=== PATIENT | female | born 1945 | race Caucasian/White ===

== ENCOUNTER 2021-02-25 14:39 | Outpatient (CLI) | payer MEDICARE, SELFPAY ==
[2021-02-25 15:57] LABS: Basophils Absolute Auto 0.1 K/mm3 (0.0-0.1); Basophils Percent Auto 0.7 % (0.2-1.2); Eosinophils Absolute Auto 0.2 K/mm3 (0-0.3); Eosinophils Percent Auto 2.9 % (0-4.4); Hematocrit 43.3 % (37.0-47.0); Hemoglobin 14.3 g/dL (12.0-15.0); Immature Granulocyte Absolute 0.02 K/mm3 (0.00-0.031); Immature Granulocyte Percent A 0.3 % (0-0.5); Lymphocytes Absolute Auto 1.86 K/mm3 (0.9-3.2); Lymphocytes Percent Auto 24.6 % (18.3-44.2); Mean Corpuscular Hemoglobin 31.6 pg (26-34); Mean Corpuscular Volume 95.6 fl (80-100); Mean Platelet Volume 9.2 fl (7.4-10.4); Monocytes Absolute Auto 0.8 K/mm3 (0.1-0.6); Monocytes Percent Auto 10.1 % (2.6-8.5); Neutrophils Absolute Auto 4.6 K/mm3 (1.3-6.7); Neutrophils Percent Auto 61.4 % (45.5-73.1); Platelet Count Result 241 k/mm3 (150-375); Red Blood Count 4.53 M/mm3 (4.2-5.4); Red Cell Distribution Width 13.5 % (11.5-14.5); White Blood Count 7.6 K/mm3 (4.5-10.0)
[2021-02-25 16:00] LABS: Add Urine Microscopic? YES; Appearance Urine Clear (Clear); Bilirubin Urine Negative (Negative); Blood Urine Negative (Negative); Color Urine Yellow (Yellow); Glucose Urine UA Negative (Negative); Ketones Urine Negative (Negative); Leukocyte Esterase Ur Trace LEU/UL (Negative); Nitrate Urine Negative (Negative); Protein Urine Negative (Negative); RBC Urine 0-2 /hpf (0-2); Specific Grav Ur 1.023 (1.001-1.035); Squamous Epithelial Cell Urine Rare /hpf (Few); Urobilinogen Urine Negative mg/dL (<2.0); WBC Urine 0-3 /hpf
[2021-02-25 16:10] LABS: Alanine Aminotransferase 22 U/L (4-35); Alkaline Phosphatase 71 U/L (38-126); Anion Gap 8 mmol/L (8-16); Aspartate Amino Transferase 27 U/L (14-36); Bilirubin,Total 0.5 mg/dL (0.2-1.3); Blood Urea Nitrogen 29 mg/dL (7-17); Calcium 9.4 mg/dL (8.4-10.2); Carbon Dioxide 28 mmol/L (22-30); Chloride 104 mmol/L (98-107); Cholesterol 225 mg/dL (0-200); Estimated Glomerular Filt Rate > 60; Glucose 99 mg/dL (65-110); HDL Direct 80 mg/dL; Potassium 4.4 mmol/L (3.4-5.0); Sodium 140 mmol/L (137-145); Triglycerides 181 mg/dL (<150)
[2021-02-25 16:20] LABS: LDL Cholesterol Direct 114 mg/dL
[2021-02-25 17:29] LABS: Hemoglobin A1C 5.3 % (<5.7)
[2021-02-25 19:11] LABS: Free T4 Free Thyroxine 0.73 ng/mL (0.78-2.19); Vitamin D 25 Hydroxy 36.3 ng/mL
[2021-02-26 07:55] LABS: Alanine Aminotransferase 21 U/L (4-35); Albumin Level 4.9 g/dL (3.5-5.1); Alkaline Phosphatase 74 U/L (38-126); Anion Gap 9 mmol/L (8-16); Aspartate Amino Transferase 24 U/L (14-36); Bilirubin,Total 0.2 mg/dL (0.2-1.3); Blood Urea Nitrogen 29 mg/dL (7-17); Carbon Dioxide 27 mmol/L (22-30); Chloride 104 mmol/L (98-107); Cholesterol 219 mg/dL (0-200); Estimated Glomerular Filt Rate > 60; Glucose 96 mg/dL (65-110); HDL Direct 74 mg/dL; Potassium 4.5 mmol/L (3.4-5.0); Sodium 140 mmol/L (137-145); Triglycerides 184 mg/dL (<150)
[2021-02-26 08:06] LABS: LDL Cholesterol Direct 125 mg/dL
[2021-02-26 08:10] LABS: Free T4 Free Thyroxine 0.74 ng/mL (0.78-2.19); Vitamin D 25 Hydroxy 33.5 ng/mL
[2021-02-26 12:33] LABS: Hemoglobin A1C 5.4 % (<5.7)
== END 2021-02-25 14:40 | disposition home or self-care (01) ==
LOC: ANHLAB 14:48
PROVIDERS: PCP Internal Medicine; Visit Provider Internal Medicine
DX: Z13.1 Encounter for screening for diabetes mellitus (principal); Z13.29 Encounter for screening for other suspected endocrine disorder; Z79.899 Other long term (current) drug therapy; Z76.89 Persons encountering health services in other specified circumstances; E55.9 Vitamin D deficiency, unspecified; Z13.220 Encounter for screening for lipoid disorders
CPT/HCPCS: 36415; 80053; 80061; 81001; 82306; 83036; 84439; 84443; 85025

== ENCOUNTER 2021-05-14 01:00 | Day surgery (SDC) | payer MEDICARE, SELFPAY ==
[2021-04-30 13:45] VITALS: BMI 28.0
[2021-05-14] VITALS (10 sets, daily range): BP systolic 164–194; BP diastolic 85–109; PULSE 70–99; RESP 18–22; TEMP 36.3; O2SAT 97–100; BMI 28.0
--- NOTE | ~2021-05-14 | XR_ITS ---
EXAMINATION: XR abdomen obstructive series EXAM DATE: 05/14/2021 09:00 INDICATION: Abdominal after colonoscopy. TECHNIQUE: Frontal upright projection of the upper abdomen, frontal projection of the lower abdomen f or interpretation. There is no prior study for comparison. FINDINGS: There is expected amount of colonic stool and gas. No small bowel dilation, nonobstructiv e bowel gas pattern. There are no suspicious calcifications identified. There is no organomegaly suspected. The bones are unremarkable. There is no free intraperitoneal air. The lung bases are clear. IMPRESSION: No evidence of free intraperitoneal gas. Reviewed, dictated and finalized at location A. [employer]
[2021-05-14] MEDS: LACTATED RINGERS 1,000 ML 150 ML IV CONT (06:59)
--- NOTE | 2021-05-14 07:04 | P.PNAN_ITS ---
Anes - Eval Pre Procedure Procedure: Operation Date: 05/14/21 08:00 Proposed Procedures p Colonoscopy - Tim Irving MD Date/Time: 05/14/21 07:04 Pre Op Diagnosis: positive cologuard Patient Data Age: 75 Gender: F Height: 1.63 m Weight: 74.2 kg Last Vital Signs Temp 97.4 F L 05/14/21 06:48 Pulse 99 05/14/21 06:48 Resp 18 05/14/21 06:48 BP 182/98 H 05/14/21 06:48 Pulse Ox 97 05/14/21 06:48 Allergies Allergy/AdvReac Type Severity Reaction Status Date / Time No Known Allergies Allergy Verified 04/30/21 13:43 Home Medications Medication Instructions Recorded Confirmed Type glucosamine HCl 500 mg tablet 500 mg PO DAILY 02/26/21 04/30/21 History multivitamin 1 tablet PO DAILY 02/26/21 04/30/21 History vitamin A-vitamin C-vit E-min 1 tablet PO DAILY 04/30/21 04/30/21 History [Eye-Vites] Patient hx anesthesia problems: none Family hx anesthesia problems: none Results Review: All pre-operative results and documents have been reviewed as part of the pre-operative evaluation. 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 Positive colorectal cancer screening using Cologuard test Family History Family History Mother Patient's mother is , Onset Age: 87 Leukemia Father Heart disease Social History Social History Smoking packs per day: 0.5 Smoking cigarettes per day: 10.0 Years smoked: 2 Smoking pack-years: 1.00 Smoking status: Former smoker Tobacco type: cigarettes Alcohol intake: current Drinks per week: 3 Substance use: never Substance use type: does not use Living arrangements: with family Spiritual care concerns: No Exam Day of Procedure 05/14/21 07:04 Patient weight: overweight Heart: regular rate and rhythm Lungs: clear to auscultation Airway: Mallampati scale class II Neurological: alert and oriented Other findings: denies health issues
--- NOTE | 2021-05-14 07:21 | WPDANESEFPP ---
Anes - Eval Final PreProcedure Day of Procedure 05/14/21 07:21 Patient weight: overweight Heart: regular rate and rhythm Lungs: clear to auscultation Airway: Mallampati scale class II Neurological: alert and oriented Last oral intake: >/= 8 hours ASA classification: II Emergent: no Anesthetic plan: proceed Anesthesia type and monitoring: general GIVS and standard monitoring Results Review: All pre-operative results and documents have been reviewed as part of the pre-operative evaluation. Informed Consent: The patient's anesthetic plan and its attendant risks and benefits were discussed with the patient/family/POA. Questions were solicited and answers provided to the satisfaction of the patient/family/POA.
--- NOTE | 2021-05-14 07:27 | P.CONGI_ITS ---
Assessment and Plan Assessment and plan (1) Positive colorectal cancer screening using Cologuard test: Code(s): R19.5 - Other fecal abnormalities Status: Acute Assessment and Plan: Patient presents for colonoscopy because of positive Cologuard test. Further recommendations will be given after endoscopy. GI Consult Note Consult date/time: 05/14/21 07:27 HPI: Thelma Anders is a 75 year old female Presents for screening colonoscopy. Patient's current weight appetite bowel movements are normal. She denies abdominal pain. She has had no bleeding. Patient recently underwent a Cologuard test that was found to be positive. She presents today for neoplasia screening. Review of Systems Review of Systems: All systems reviewed & are unremarkable except as noted in HPI and below PMFSH Past Medical History Medical History BMI 27.0-27.9,adult Colon cancer screening Cyst of neck Encounter to establish care On penit[facility]iary drug therapy Positive colorectal cancer screening using Cologuard test Family History Family History Mother Patient's mother is , Onset Age: 87 Leukemia Father Heart disease Social History Social History Smoking packs per day: 0.5 Smoking cigarettes per day: 10.0 Years smoked: 2 Smoking pack-years: 1.00 Smoking status: Former smoker Tobacco type: cigarettes Alcohol intake: current Drinks per week: 3 Substance use: never Substance use type: does not use Living arrangements: with family Spiritual care concerns: No Meds Home Medications and Allergies Home Medications Medication Instructions Recorded Confirmed Type glucosamine HCl 500 mg tablet 500 mg PO DAILY 02/26/21 04/30/21 History multivitamin 1 tablet PO DAILY 02/26/21 04/30/21 History vitamin A-vitamin C-vit E-min 1 tablet PO DAILY 04/30/21 04/30/21 History [Eye-Vites] Allergies Allergy/AdvReac Type Severity Reaction Status Date / Time No Known Allergies Allergy Verified 04/30/21 13:43 Vital Signs Vital Signs - 24 hr 05/14/21 06:48 Temperature 97.4 F L Pulse Rate 99 Respiratory Rate 18 Blood Pressure 182/98 H Pulse Oximetry 97 Exam Narrative: Physical exam reveals patient to be alert. Vital signs stable. HEENT exam is unremarkable. Patient is anicteric. Lungs are clear to auscultation and percussion. Heart is without murmur or extra sounds. Abdominal exam bowel sounds present soft nontender with no organomegaly. Digital external rectal exam is normal.
[2021-05-14] MEDS: hydrALAZINE HCL 20 MG/ML VIAL 10 MG IV PUSH (09:41)
--- NOTE | 2021-05-14 10:22 | SUR.PHASEII ---
PT RECEIVED TO RECOVERY 0826. PT DROWSY, APPEARS UNCOMFORTABLE, HOLDING ABDOMEN, GRIMACING. PT STATES PAIN IS SHARP TO RIGHT LOWER ABDOMEN RADIATING TO BACK. PT MOVING BACK AND FORTH TO GET COMFORTABLE. DR CERNA SEEING PT, ORDERED OBSTRUCTIVE SERIES. PT'S SPOUSE LAN UPDATED. RADIOLOGY HERE FOR XRAY AT 0854. HEATED BLANKET TO ABDOMEN FOR COMFORT. BLOOD PRESSURE RUNNING 180s/100s, HEART RATE 70s, ANESTHESIA AWARE. DR CERNA SPOKE WITH PT AGAIN AT 0858. 0915 PT STATES PAIN IS MORE TOLERABLE, EXPLAINS IT DULL. PT RESTING QUIETLY. DR JACKSON NOTIFIED AT 0931 OF BLOOD PRESSURE 194/109, HR 74. NEW ORDERS FOR HYDRALAZINE 10MG IVP X1 DOSE NOW. HYDRALAZINE GIVEN AT 0941 PER ORDERS. PT EDUCATED ON BLOOD PRESSURE AND HYDRALAZINE, PT STATES NO QUESTIONS. PT AWAKE AND ALERT, APPEARS COMFORTABLE, RESTING QUIETLY. 0950 PT'S SPOUSE LAN UPDATED. BLOOD PRESSURE 180/92, HR [address] CERNA MADE AWARE OF XRAY RESULTS. DR CERNA SPOKE WITH PT AGAIN AND STATES OK TO DISCHARGE PT. 1011 BLOOD PRESSURE 167/85, HR 82. DR JACKSON NOTIFIED OF UPDATED VITAL SIGNS, ORDERS TO PROCEED WITH DISCHARGE. PT EDUCATED IF SHE HAS WORSENING OR CONTINUED PAIN OR FEVERS TO RETURN TO EMERGENCY ROOM, STATES UNDERSTANDING.
== END 2021-05-14 10:26 | disposition home or self-care (01) ==
PROVIDERS: PCP Internal Medicine; Visit Provider Internal Medicine Gastroenterology
PROC: 0DJD8ZZ Inspection of Lower Intestinal Tract, Via Natural or Artificial Opening Endoscopic (ICD-10-PCS; CPT 45378; principal; 2021-05-14 08:00)
DX: R19.5 Other fecal abnormalities (principal); K38.8 Other specified diseases of appendix; N80.5 Endometriosis of intestine; K63.5 Polyp of colon; K64.8 Other hemorrhoids; K57.30 Diverticulosis of large intestine without perforation or abscess without bleeding; Z87.891 Personal history of nicotine dependence
CPT/HCPCS: 45385; 74019; 88305; 88342; J0360; J2704; J7120

== ENCOUNTER 2022-08-25 11:33 | Outpatient (CLI) | payer MEDICARE, SELFPAY ==
--- NOTE | ~2022-08-25 | CT_ITS ---
CT Facial Bones Clinical Indication: Trauma, injury Technique: Following intravenous administration of 75 cc of Omnipaque 350 contrast material, axial sc ans were obtained through the facial bones followed by coronal and sagittal reconstructions. Dose red uction technique was used on this scan by utilizing automated exposure control and iterative reconstr uction technique. The dose-length product (DLP) was 374.00 mGy-cm. Findings: There are fractures of the left nasal bone, anterior wall the left maxillary sinus, and román or of the left orbit. Left orbital floor fracture is depressed by up to 5 mm. No other fracture ident ified. There are blood products layering within the left maxillary sinus. There is extensive subcutaneous so ft tissue emphysema throughout the left periorbital region extending through the left cheek, left man dibular region, and into the left parapharyngeal region and throughout the left neck. There is also e xtensive intraorbital emphysema on the left side. No intraorbital hemorrhage evident. Impression: Depressed fracture of the floor the left orbit, as detailed above. Additional fractures of left nasal bone and anterior wall the left maxillary sinus. Extensive soft tissue emphysema within the left orbit, in the left periorbital region, extending thro ughout the left face and left neck. Reviewed, dictated and finalized at location M. Impression: Depressed fracture of the floor the left orbit, as detailed above. Additional fractures of left nasal bone and anterior wall the left maxillary si nus. Extensive soft tissue emphysema within the left orbit, in the left periorbital region, extending throughout the left face and left neck.
--- NOTE | ~2022-08-25 | XR_ITS ---
XR forearm LT 2V 08/25/2022 12:46 Indication: Left arm pain Procedure: 2 views left forearm Comparison: No prior studies for comparison. Findings: Osteopenia. There is polyarticular osteoarthritis. No acute fracture, subluxation or disloc ation. No foreign bodies. Impression: 1: No acute fracture. Reviewed, dictated and finalized at location B. Impression: 1: No acute fracture.
--- NOTE | ~2022-08-25 | XR_ITS ---
XR hand LT min 3V 08/25/2022 12:46 Indication: Left hand pain Procedure: 4 views left hand Comparison: No prior studies for comparison. Findings: There is a minimally displaced fracture proximal aspect of the fifth proximal phalanx. Poly articular osteoarthritis. Osteopenia. No foreign bodies. Impression: 1: Minimally displaced fracture proximal aspect of the fifth proximal phalanx. Reviewed, dictated and finalized at location B. Impression: 1: Minimally displaced fracture proximal aspect of the fifth proximal phalanx.
[2022-08-25 12:52] LABS: Estimated Glomerular Filt Rate > 60
== END 2022-08-25 11:34 | disposition home or self-care (01) ==
PROVIDERS: PCP Internal Medicine; Visit Provider Internal Medicine
DX: S02.32XA Fracture of orbital floor, left side, initial encounter for closed fracture (principal); S02.2XXA Fracture of nasal bones, initial encounter for closed fracture; S02.40DA Maxillary fracture, left side, initial encounter for closed fracture; S62.617A Displaced fracture of proximal phalanx of left little finger, initial encounter for closed fracture; J43.9 Emphysema, unspecified; W19.XXXA Unspecified fall, initial encounter
CPT/HCPCS: 70487; 73090; 73130; Q9967

== ENCOUNTER 2022-08-25 14:31 | Emergency (ER) | payer MEDICARE, SELFPAY ==
[2022-08-25 14:58] VITALS: BP 164/76; PULSE 104; RESP 18; TEMP 36.6; O2SAT 96
--- NOTE | 2022-08-25 17:14 | ED.FALL ---
HPI - Fall General Chief Complaint: Fall Stated Complaint: Fall yesterday Time Seen by Provider: 08/25/22 15:19 Source: patient Mode of arrival: ambulatory Limitations: no limitations History of Present Illness HPI Narrative: 77-year-old otherwise healthy was sent from primary doctor's office with complaints of fall. Patient she states that she had tripped and front of her yard yesterday no loss of consciousness she denies any headache or neck pain now complains of mild swelling of the left orbit. And she also complains of pain to her left hand. complaint: fall Onset (ago): day(s) (1) Fall from: standing Fall witnessed: yes, by family Place fall occurred: home Loss of consciousness: none Prolonged down time: no Symptoms prior to fall: none Context: tripped/slipped Location of injury: face (Left orbit) Location of injury - extremities: Left: hand Severity: moderate Quality: dull Associated symptoms (after fall): denies Related Data Home Medications Medication Instructions Recorded Confirmed glucosamine HCl 500 mg tablet 500 mg PO DAILY 02/26/21 04/30/21 multivitamin 1 tablet PO DAILY 02/26/21 04/30/21 vitamin A-vitamin C-vit E-min 1 tablet PO DAILY 04/30/21 04/30/21 tablet Allergies Allergy/AdvReac Type Severity Reaction Status Date / Time No Known Allergies Allergy Verified 08/25/22 14:32 Review of Systems Review of Systems: All systems reviewed & are unremarkable except as noted in HPI and below Constitutional: Constitutional: Reports no additional constitutional complaints Eyes: Eyes: Reports as per HPI ENT: Reports system reviewed and no additional complaints, except as documented Cardiovascular: Cardiovascular: Reports no additional cardiovascular complaints Respiratory: Respiratory: Reports no additional respiratory complaints Gastrointestinal: Gastrointestinal: Reports no additional gastrointestinal complaints Musculoskeletal: Musculoskeletal: Reports no additional musculoskeletal complaints and Reports as per HPI PMF Past Medical History Medical History BMI 27.0-27.9,adult Colon cancer screening Cyst of neck Discoloration of skin of foot Ecchymosis of eyelid Encounter to establish care Facial injury Fall Mallet finger of left hand On [employer] drug therapy Positive colorectal cancer screening using Cologuard test Wrist pain, left Family History Family History Mother Patient's mother is , Onset Age: 87 Leukemia Father Heart disease Social History Social History Smoking packs per day: 0.5 Smoking cigarettes per day: 10.0 Years smoked: 2 Smoking pack-years: 1.00 Smoking status: Former smoker Tobacco type: cigarettes Alcohol intake: current Drinks per week: 3 Substance use: never Substance use type: does not use Lack of Transportation: No Lack of Food: Never True Current Housing: I Have Housing Concerned About Future Housing: No Difficulty Paying Gas/Electric Bills: No Difficulty Paying for Meds: No Currently Unemployed: No Education: Associate Degree Difficulty w/ Childcare or Family Care: No Living arrangements: with family Occupation/Education: retired Gender identity (if verbalized by the patient): Female Spiritual care concerns: No Exam Narrative: GENERAL: Well-appearing, well-nourished, and in no acute distress. HEAD: Normocephalic, atraumatic. EYES: PERRLA and EOMI. large left orbital hematoma conjunctiva mildly erythematous no hyphema ENT: Nares clear, no rhinorrhea or epistaxis. Mucous membranes moist. NECK: Supple. CHEST: Clear to auscultation. No respiratory distress. HEART: Regular rate and rhythm. No murmur heard. Normal peripheral pulses. ABDOMEN: Soft, nontender, nondistended, normal active bowel sounds. EXTRE
[2022-08-25 17:18] LABS: Basophils Absolute Auto 0.1 K/mm3 (0.0-0.1); Basophils Percent Auto 1.1 % (0.2-1.2); Eosinophils Absolute Auto 0.2 K/mm3 (0-0.3); Hematocrit 42.4 % (37.0-47.0); Immature Granulocyte Absolute 0.03 K/mm3 (0.00-0.031); Immature Granulocyte Percent A 0.4 % (0-0.5); Lymphocytes Absolute Auto 1.65 K/mm3 (0.9-3.2); Lymphocytes Percent Auto 23.4 % (18.3-44.2); Mean Corpuscular Hemoglobin 31.1 pg (26-34); Mean Corpuscular Volume 94.2 fl (80-100); Mean Platelet Volume 9.3 fl (7.4-10.4); Monocytes Absolute Auto 0.7 K/mm3 (0.1-0.6); Monocytes Percent Auto 9.8 % (2.6-8.5); Neutrophils Absolute Auto 4.4 K/mm3 (1.3-6.7); Neutrophils Percent Auto 62.3 % (45.5-73.1); Platelet Count Result 253 k/mm3 (150-375); Red Cell Distribution Width 14.4 % (11.5-14.5)
[2022-08-25 17:28] LABS: Alanine Aminotransferase 24 U/L (6-35); Albumin Level 4.7 g/dL (3.5-5.1); Alkaline Phosphatase 79 U/L (38-126); Anion Gap 8 mmol/L (8-16); Aspartate Amino Transferase 28 U/L (14-36); Bilirubin,Total 0.7 mg/dL (0.2-1.3); Blood Urea Nitrogen 23 mg/dL (7-17); Calcium 9.3 mg/dL (8.4-10.2); Carbon Dioxide 26 mmol/L (22-30); Chloride 104 mmol/L (98-107); Estimated Glomerular Filt Rate > 60; Glucose 106 mg/dL (65-110); Potassium 4.4 mmol/L (3.4-5.0); Sodium 138 mmol/L (137-145)
[2022-08-25 17:33] LABS: INR 0.9; Prothrombin Time 12.1 Seconds (11.1-14.7)
--- NOTE | 2022-08-25 17:33 | PC.NURSE ---
report called to dora cook at [facility]. pt to go via private vehicle
== END 2022-08-25 17:15 | disposition short-term general hospital (02) ==
PROVIDERS: Emergency Provider Family Medicine; PCP Internal Medicine
DX: S02.32XA Fracture of orbital floor, left side, initial encounter for closed fracture (principal); S02.2XXA Fracture of nasal bones, initial encounter for closed fracture; S02.40DA Maxillary fracture, left side, initial encounter for closed fracture; W01.0XXA Fall on same level from slipping, tripping and stumbling without subsequent striking against object, initial encounter
CPT/HCPCS: 36415; 70487; 73090; 73130; 80053; 85025; 85610; 99283; Q9967

== ENCOUNTER → 2022-09-16 08:08 | Outpatient (CLI) | payer MEDICARE, SELFPAY ==
--- NOTE | ~2022-09-16 | MR_ITS ---
EXAMINATION: MR TMJS DATE: 09/16/2022 09:09 INDICATION: Abnormal CT of the mandible post recent trauma. TECHNIQUE: Magnetic resonance imaging (MRI) of the temporomandibular joints was performed without int ravenous contrast. Sequences included closed-mouth sagittal T2-weighted FSE and PD-weighted FSE and c oronal T1-weighted FSE and open-mouth sagittal T2-weighted FSE and PD-weighted FSE and coronal T1-abisai ghted FSE. COMPARISON: None. FINDINGS: Nonodontogenic 2.3 x 0.8 x 0.3 cm low signal intensity lesion with lobular margins within the right m andibular ramus positioned along the posterior margin but not appearing to involve the canal of the i nferior alveolar nerve. The low signal intensity corresponds to sclerosis with smooth margins on prio r CT. There is surrounding lucency on CT correspond to T1 hyperintense fat signal with mild endosteal scalloping but without guillermina cortical penetration or expansion of the bone on CT. 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 Again seen is a fracture along the inferior wall of the left orbit. Mild mucosal thickening t he paranasal sinuses with T1 hyperintense likely mucous retention cyst along the medial wall of the r ight maxillary sinus. The right temporomandibular joint demonstrates normal morphology of the temporomandibular fossa, kenan ibular eminence and mandibular condyle. Disc demonstrates normal signal and morphology and is normall y positioned with the mouth in the both open and closed positions. The left temporomandibular joint demonstrates normal morphology of the temporomandibular fossa, anthony bular eminence and mandibular condyle. Disc demonstrates normal signal and morphology with anterior d isplacement of the disk with mouth closed. There is recapture of the disk with mouth open. IMPRESSION: 1. 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 2. Anterior displacement of the normal-appearing left temporomandibular disc which recaptures in the open-mouth position. Right temporomandibular joint and disc are normal. 3. Redemonstration of a recent fracture of the inferior wall of the left orbit. Reviewed, dictated and finalized at location L. IMPRESSION: 1. 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 2. Anterior displacement of the normal-appearing left temporomandibular disc wh ich recaptures in the open-mouth position. Right temporomandibular joint and di sc are normal. 3. Redemonstration of a recent fracture of the inferior wall of the left orbit.
== END ==
PROVIDERS: PCP Internal Medicine; Visit Provider Internal Medicine
DX: S09.93XA Unspecified injury of face, initial encounter (principal); M89.9 Disorder of bone, unspecified; T14.90XA Injury, unspecified, initial encounter
CPT/HCPCS: 70336

== ENCOUNTER 2022-10-07 12:30 | Outpatient (RCR) | payer MEDICARE, SELFPAY ==
--- NOTE | 2022-09-15 14:58 | OTOPEVAL1 ---
Assessment and note entered by Meaghan Ku OTR/Solo Evaluation Information Assessment Status Evaluation Diagnosis L digit 5 proximal phalanx fracture Onset 08/24/2022 Subjective Information Patient presents to outpatient OT following a proximal phalanx fracture of L UE digit 5 on 2022. Patient is 3 weeks out from injury and is cleared for ROM of digit 5, patient presents today with a hand based ulnar gutter splint keeping MCP joint of digit 4-5 in neutral position and PIP/ DIP joints free. Patient reports broke finger in a fall. Patient reports swelling and stiffness in digit 5, has guarded finger and has not attempted to use L hand as much. 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 Reported Pain Level Pain Score 0: Self Report Assessment OT Clinical Summary Thelma is a 77 year old female who presents to outpatient OT 3 weeks following a closed L UE proximal phalanx fracture of digit 5. Patient presents with a hand based ulnar gutter splint keeping MCP joint of digit 4-5 in neutral position and PIP/DIP joints free. Patient reports has kept splint on and has not attempted to move finger very much. Patient demonstrates decreased digit 5 MCP, PIP, DIP flexion in addition to extension lag of ~-60 degrees of PIP extension. Patient would benefit from skilled OT for HEP instruction, UE exercise, modalities, manual therapy in order to increase functional use L UE. Plan of Care Interventions Therapeutic Exercise,Manual Therapy,Therapeutic Activities,Hot Pack/Cold Pack,Paraffin OT Services Indicated Yes Treatment Frequency and 1x/week, 5 weeks Duration These treatments will address the objective and functional deficits as defined above. The patient will be advanced safely and appropriately in order for the patient to progress towards his/her prior level of function. Additional exercises will be introduced and as well as a comprehensive home exercise program upon discharge, if needed, ?to ensure carryover of functional gains achieved in the clinic. This treatment plan has been reviewed and agreement upon by the patient.
--- NOTE | 2022-10-14 15:06 | OTOPDC ---
Assessment and note entered by NATALIA Dent/Solo Evaluation Information Assessment Status Discharge - Pt Not Presen Assessment OT Clinical Summary Thelma is a 77 year old female who presents to outpatient OT 3 weeks following a closed L UE proximal phalanx fracture of digit 5. Patient has participated in x3 treatments with OT. Spoke with patient over the phone who reports she is very pleased with therapy and does not feel she needs to continue at this time. Patient reports is able to move little finger great and is able to use L hand for all daily and functional tasks. Patient is to be discharged at this time from skilled OT with independence with all HEP materials. Plan of Care OT Services Indicated No
== END 2022-10-14 15:58 | disposition home or self-care (01) ==
LOC: ANHGOSHOT 12:30
PROVIDERS: PCP Internal Medicine
DX: S62.617D Displaced fracture of proximal phalanx of left little finger, subsequent encounter for fracture with routine healing (principal)
CPT/HCPCS: 97018; 97035; 97110; 97140; 97165; 97760; L3921

== ENCOUNTER 2023-04-30 07:52 | Outpatient (CLI) | payer MEDICARE, SELFPAY | END 2023-04-30 07:53 | disposition home or self-care (01) | PROVIDERS: PCP Internal Medicine; Visit Provider Internal Medicine | DX: H90.3 Sensorineural hearing loss, bilateral (principal) | CPT/HCPCS: 92557; 92567 ==

== ENCOUNTER 2024-12-29 08:40 | Day surgery (SDC) | payer MEDICARE, SELFPAY ==
[2024-12-20 11:04] VITALS: BMI 28.5
--- NOTE | 2024-12-29 07:01 | P.OP_ITS ---
Procedure Note - Detailed Date of Procedure 12/29/24 Pre-op Diagnosis Ganglion Cyst Right Volar Wrist Post-op Diagnosis Same Procedure Performed excision right volar ganglion cyst Surgeon Savanah Simon MD Dredge Or Barge [place] Hand cass quick pa-c Anesthesia MAC Description of Procedure INFORMED CONSENT: The patient was seen and examined and marked in the pre-op area.? The patient signed the consent form. PROCEDURE IN DETAIL:The patient taken back to OR on the stretcher in supine position. Time out performed with anesthesia, surgeon and staff agreeing on patient's name site and surgery to be performed SCDs were placed on the lower extremities and inflated. A tourniquet was placed on {right} upper extremity and antibiotics given IV After anesthesia administered sedation I injected {7}cc 1%lido with epi and 0.5% marcaine plain at the operative site The?{right upper extremity}?was prepped and draped in sterile fashion the??{right upper extremity/} was? exsanguinated with Esmarch bandage proximal to mass and tourniquet inflated to 250mmHg I proceeded with making a longitudinal incision over the right volar wrist mass through skin and dermis with a 15 blade scalpel. Littler scissors and 15 blade were used to elevate skin flaps exposing the mass. I identified the mass proximally and proceeded with circumferential dissection of the mass which appeared to have a stalk coming from the ulnar side of the flexor carpi radialis down to the joint capsule. The cyst was transected from the joint capsule with bipolar cautery. I irrigated with normal saline. I repaired the capsular defect with 4-0 Vicryl suture. 4-0 Monocryl was used for subcuticular closure. A dressing of Dermabond, 4x4, elma, and a volar splint was applied for patient safety, security, and comfort and secured with an xin bandage after the tourniquet was let down noting the hand was warm and well perfused. The patient was then awaken from anesthesia and transferred to the recovery room in stable condition.? Complications - none EBL- 0cc Disposition - home in stable condition Cass Quick PA-C was essential for positioning, retraction, closure and dressing placement [facility] Billing Surgery - Charge Forward: Surgery Billing ([id number] for cass)
--- NOTE | 2024-12-29 07:01 | PM.HPGS ---
History of Present Illness History of Present Illness Chief complaint: Ganglion Cyst Right Volar Wrist Narrative: Patient seen and examined in pre-operative holding area. No interval change in medical history or symptoms. Patient recalls previous discussion of benefits and alternatives to procedure. Continues to desire to proceed with right volar wrist ganglion cyst excision . Reviewed procedure, post-op expectations and risks including but not limited to bleeding, infection, injury to tendon/nerve/vessel, decreased hand function, stiffness, RSD, no change or worsening of symptoms, recurrence. I discussed the possible use of assistants and their participation in the case. Patient stated understanding and signed the consent form wishing to proceed. Review of Systems Review of Systems: All systems reviewed & are unremarkable except as noted in HPI and below PMFSH Past Medical History Medical History BMI 27.0-27.9,adult BMI 28.0-28.9,adult BMI 29.0-29.9,adult Cyst of neck Discoloration of skin of foot Diverticulosis Ecchymosis of eyelid Encounter for Medicare annual wellness exam Encounter for routine adult health examination with abnormal findings Encounter to establish care Facial injury Fall Follow up Ganglion cyst Hearing loss History of facial fracture Hx of colonic polyps Hyperlipidemia Mallet finger of left hand Positive colorectal cancer screening using Cologuard test Vitamin D deficiency Wrist pain, left Family History Family History Mother Patient's mother is , Onset Age: 87 Leukemia Father Heart disease Social History Social History Smoking packs per day: 0.5 Smoking cigarettes per day: 10.0 Years smoked: 2 Smoking pack-years: 1.00 Smoking status: Former smoker Tobacco type: cigarettes Second hand tobacco smoke exposure: Yes Alcohol intake: current Drinks per week: 2 Substance use: never Substance use type: does not use Do You Feel Safe in your Home?: Yes Lack of Transportation: No Lack of Food: Never True Current Housing: I Have Housing Concerned About Future Housing: No Difficulty Paying Gas/Electric Bills: No Difficulty Paying for Meds: No Currently Unemployed: No Education: Associate Degree Difficulty w/ Childcare or Family Care: No Living arrangements: with family Occupation/Education: retired Gender identity (if verbalized by the patient): Female Spiritual care concerns: No Meds Home Medications and Allergies Home Medications ?Medication ?Instructions ?Recorded ?Confirmed ?Type glucosamine HCl 500 mg tablet 500 mg PO DAILY 02/26/21 12/29/24 History multivitamin 1 tablet PO DAILY 02/26/21 12/29/24 History acetaminophen 500 mg tablet 500 mg PO Q6H PRN pain 09/01/22 12/29/24 History (Tylenol Extra Strength) cholecalciferol (vitamin D3) 50 50 mcg PO DAILY 05/06/23 12/29/24 History mcg (2,000 unit) capsule pravastatin 40 mg tablet See Rx Instructions .Route 10/19/24 12/29/24 Rx .COMPLEX #90 tabs vitamins A,C,Z-pucx-qzvthz 4,296 1 cap PO BID 11/02/24 12/29/24 History mcg-226 mg-90 mg capsule (PreserVision AREDS) Allergies Allergy/AdvReac Type Severity Reaction Status Date / Time No Known Allergies Allergy Verified 12/29/24 09:02 Exam Narrative: unchanged Assessment and Plan Assessment and plan (1) Ganglion cyst: Code(s): M67.40 - Ganglion, unspecified site Status: Acute Assessment and Plan: cont as above
--- OUTSIDE RECORDS SUMMARY | 2024-12-29 08:46 | XMS_ITS | Clinical Summary ---
Author Organization [facility] al Address [address] [place] [address] Care Team Providers Care Video Machines Mechanic Name Role Phone Britton Sheridan MD Primary Care Provider [phone] Allergies No known active allergies Medications acetaminophen (TYLENOL) 500 mg tablet Take 1 tablet (500 mg total) by mouth every 6 (six) hours as needed for pain Active glucosam-chondro itin-diet cb25 116-100 mg capsule Take by mouth Active bmouhdbz-wos-gil jazmin fumarate 9 mg iron/15 mL liquid Take by mouth Active Active Problems Problem Noted Date Diagnosed Date Pseudophakia of both eyes 09/01/2022 Assessment & Plan (09/23/2022 1:37 PM CDT): Stable Monitor Assessment & Plan (09/01/2022 2:25 PM CDT): CTM Closed fracture of left orbital floor with routi ne healing 08/29/2022 Assessment & Plan (09/30/2022 1:39 PM CDT): Following ground-level fall on 08/25/22 Eye exam reassuring without evidence of globe injury on DFE completed in the ED 08/26. Saw Dr. Ly who recommended non-op management. Today, pt still doing well. No diplopia, pain, or other symptoms. Eye exam remains reassuring. Can return to regular eye doctor and to [facility]. Discussed return precautions. Assessment & Plan (09/01/2022 2:30 PM CDT): Following ground-level fall on 08/25/22 Eye exam reassuring without evidence of globe injury on DFE completed in the ED 08/26. Today remains w/o diplopia, no clinical signs of entrapment, and ocular exam otherwise reassuring. No enophthalmos on James Plan: -Recommendations for antibiotic coverage and operative decision-making per Face team. - HOB elevation, open-mouth sneezing, no nose-blowing. - May use cool compress/ice pack on periorbital region x5-10 minutes q30 minutes RTC in ~4 weeks Immunizations Immunization Administration Dates Next Due Tdap 08/25/2022 Surgical History Surgery Date Site/Laterality Comments CATARACT EXTRACTION 05/18/2017 - 05/17/2018 Bilateral Family History Medical History Relation Name Comments Heart disease Father Cancer Mother Relation Name Status Comments Father Mother Social History Tobacco Use Types Packs/Day Years Used Date Smoking Tobacco: Never Smokeless Tobacco: Never Tobacco Cessation:Counseling Given: Not Answered AUDIT-C Answer Date Recorded Q1: How often do you have a drink containing alcohol? 4 or more times a week 09/02/2022 Q2: How many drinks containi ng alcohol do you have on a typical day when you are drinking? 5 or 6 Q3: How often do you have si x or more drinks on one occasion? Weekly 09/02/2022 Personal Safety Answer Date Recorded Have you ever been in or are you currently in a harmful physical or emotional relationship or is someone making you feel afraid or unsafe? 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 Gender Identity Not on file Sexual Orientation Not on file Obstetrics History Last Filed Vital Signs Vital Sign Reading Time Taken Comments Blood Pressure 162/84 09/02/2022 7:45 AM CDT Pulse 78 09/02/2022 7:45 AM CDT Temperature 36.7 C (98 F) 08/25/2022 8:52 PM CDT Respiratory Rate 20 08/25/2022 7:00 PM CDT Oxygen Saturation 96% 08/25/2022 9:00 PM CDT Inhaled Oxygen Concentration - - Weight 74.8 kg (165 lb) 09/03/2022 2:37 PM CDT Height 167.6 cm (5' 6) 09/03/2022 2:37 PM CDT Body Mass Index 26.63 09/03/2022 2:37 PM CDT Plan of Treatment Health Maintenance Due Date Last Done Comments Depression Screening 1945 Fall Risk Assessment 1945 Hepatitis C Screening 1945 Osteoporosis Screening-Bone Density Scan 1945 Hepatitis B Screening 07/22/1965 Pneumococcal vaccine 65+ (1 of 1 - PCV) 07/22/1997 Zoster Vaccine (1 of 2) 07/22/1997 Well Visit 65+ 07/22/2012 Covid-19 Vaccine (6 - 2023-2 5 season) 2024 01/28/2022, 08/29/2021, 03/13/2021, Additional history exists Influenza Vaccine (#1) 2025 2, 02/25/2021, 03/04/2020 DTaP/Tdap/Td Vaccine (3 - Td or Tdap) 08/25/2032 08/25/2022, 05/28/2018 Insurance MEDICARE [facility]ICARE [facility] Care Teams Video Machines Mechanic Relationship Specialty Start Date End Date Britton Sheridan MD [address] [place] [address] PCP - General Internal Medicine 08/26/22
--- OUTSIDE RECORDS SUMMARY | 2024-12-29 08:46 | XMS_ITS | Clinical Summary ---
Author Organization [facility] Address [facility] [place] [address] Care Team Providers Care Solar Crew Member Name Role Phone Britton Sheridan MD Primary Care Provider [phone] Social History Tobacco Use Types Packs/Day Years Used Date Smoking Tobacco: Never Assessed Comments Unknown Sex and Gender Information Value Date Recorded Sex Assigned at Not on file Legal Sex Female 4:44 PM CDT Gender Identity Not on file Sexual Orientation Not on file Last Filed Vital Signs Vital Sign Reading Time Taken Comments Blood Pressure 138/90 12/15/2007 10:30 AM CDT Pulse 89 12/15/2007 10:30 AM CDT Temperature - - Respiratory Rate - - Oxygen Saturation - - Inhaled Oxygen Concentration - - Weight 79.8 kg (176 lb) 12/15/2007 10:30 AM CDT Height 165.1 cm (5' 5) 12/15/2007 10:30 AM CDT Body Mass Index 29.29 12/15/2007 10:30 AM CDT Plan of Treatment Health Maintenance Due Date Last Done Comments Hepatitis C 07/22/1965 Pneumococcal Vaccine: 50+ Years (1 of 1 - PCV) 07/22/1997 Zoster Vaccines (1 of 2) 07/22/1997 Annual Medicare Wellness Visit 07/22/2012 Dexa Scan (General) 07/22/2012 COVID-19 Vaccine ( season) 2024 12/26/2022, 01/28/2022, 08/29/2021, Additional history exists DTaP, Tdap and Td Vaccines (3 - Td or Tdap) 08/25/2032 08/25/2022, 05/28/2018 RSV Immunization or 60+ Years Completed 02/27/2023 Meningococcal B Vaccine Aged Out No l onger eligible based on patient's age to complete this topic Meningococcal Vaccine Aged Out No alena winifred eligible based on patient's age to complete this topic RSV Immunizations Under 20 Months Aged Out No longer eligible based on patient's age to complete this topic Insurance MEDICARE [facility] Care Teams Solar Crew Member Relationship Specialty Start Date End Date Britton Sheridan MD [address] [place] [address] PCP - General INTERNAL MEDICINE 05/05/23
--- NOTE | 2024-12-29 08:58 | P.PNAN_ITS ---
Anes - Initial Pre Proc Eval Procedure: Operation Date: 12/29/24 10:15 Proposed Procedures p Excision Ganglion Cyst Right Volar Wrist - Savanah Simon MD Date/Time: 12/29/24 08:58 Surgeon: Savanah Simon MD Pre Op Diagnosis: Ganglion Cyst Right Volar Wrist Patient Data Age: 79 Gender: F Height: 1.6 m Weight: 73 kg Allergies Allergy/AdvReac Type Severity Reaction Status Date / Time No Known Allergies Allergy Verified 12/29/24 09:02 Home Medications ?Medication ?Instructions ?Recorded ?Confirmed ?Type glucosamine HCl 500 mg tablet 500 mg PO DAILY 02/26/21 12/29/24 History multivitamin 1 tablet PO DAILY 02/26/21 12/29/24 History acetaminophen 500 mg tablet 500 mg PO Q6H PRN pain 09/01/22 12/29/24 History (Tylenol Extra Strength) cholecalciferol (vitamin D3) 50 50 mcg PO DAILY 05/06/23 12/29/24 History mcg (2,000 unit) capsule pravastatin 40 mg tablet See Rx Instructions .Route 10/19/24 12/29/24 Rx .COMPLEX #90 tabs vitamins A,C,H-dndj-rodqfz 4,296 1 cap PO BID 11/02/24 12/29/24 History mcg-226 mg-90 mg capsule (PreserVision AREDS) Patient hx anesthesia problems: none Family hx anesthesia problems: none Results Review: All pre-operative results and documents have been reviewed as part of the pre- operative evaluation. [facility] Past Medical History Medical History BMI 27.0-27.9,adult BMI 28.0-28.9,adult BMI 29.0-29.9,adult Cyst of neck Discoloration of skin of foot Diverticulosis Ecchymosis of eyelid Encounter for Medicare annual wellness exam Encounter for routine adult health examination with abnormal findings Encounter to establish care Facial injury Fall Follow up Ganglion cyst Hearing loss History of facial fracture Hx of colonic polyps Hyperlipidemia Mallet finger of left hand Positive colorectal cancer screening using Cologuard test Vitamin D deficiency Wrist pain, left Family History Family History Mother Patient's mother is , Onset Age: 87 Leukemia Father Heart disease Social History Social History Smoking packs per day: 0.5 Smoking cigarettes per day: 10.0 Years smoked: 2 Smoking pack-years: 1.00 Smoking status: Former smoker Tobacco type: cigarettes Second hand tobacco smoke exposure: Yes Alcohol intake: current Drinks per week: 2 Substance use: never Substance use type: does not use Do You Feel Safe in your Home?: Yes Lack of Transportation: No Lack of Food: Never True Current Housing: I Have Housing Concerned About Future Housing: No Difficulty Paying Gas/Electric Bills: No Difficulty Paying for Meds: No Currently Unemployed: No Education: Associate Degree Difficulty w/ Childcare or Family Care: No Living arrangements: with family Occupation/Education: retired Gender identity (if verbalized by the patient): Female Spiritual care concerns: No Anes - Eval Final PreProcedure Day of Procedure 12/29/24 08:58 Heart: regular rate and rhythm Lungs: clear to auscultation ASA classification: II Anesthetic plan: proceed Anesthesia type and monitoring: monitored anesthesia care Results Review: All pre-operative results and documents have been reviewed as part of the pre- operative evaluation. Informed Consent: The patient's anesthetic plan and its attendant risks and benefits were discussed with the patient/family/POA. Questions were solicited and answers provided to the satisfaction of the patient/family/POA.
[2024-12-29 09:19] VITALS: BP 156/79; RESP 18; TEMP 36.6; O2SAT 97; BMI 28.5
[2024-12-29] MEDS: LACTATED RINGERS 1,000 ML 30 ML IV CONT (09:37)
[2024-12-29] MEDS: ACETAMINOPHEN 500 MG TABLET 1000 MG PO (09:38)
[2024-12-29] MEDS: ceFAZolin SODIUM 2 GM/20 ML SW SYRINGE IV PUSH (10:00)
[2024-12-29] MEDS: LIDO 1%/EPINEPHRINE 1:100,000 20 ML VIAL 3.5 ML INFILTRATE (10:12)
[2024-12-29] MEDS: BUPivacaine HCL 0.5% 10 ML AMP INFILTRATE (10:14)
--- NOTE | 2024-12-29 10:14 | WPDANESPN ---
Anes - Prog Note Post-Op Date/Time: 12/29/24 10:14 Vital Signs: Last Vital Signs Temp 97.8 F 12/29/24 09:19 Resp 18 12/29/24 09:19 BP 156/79 H 12/29/24 09:19 Pulse Ox 97 12/29/24 09:19 O2 Del Method Room Air 12/29/24 09:19 Pain Score (VAS): no Patient Feedback: Patient satisfied with anesthetic care.
[2024-12-29 10:27] VITALS: BP 124/62; PULSE 70; RESP 14; O2SAT 98
[2024-12-29 10:45] VITALS: BP 141/69; PULSE 68; RESP 14; O2SAT 96
[2024-12-29 11:03] VITALS: BP 133/56; PULSE 64; RESP 16; O2SAT 96
== END 2024-12-29 11:14 | disposition home or self-care (01) ==
LOC: ASC 08:41
PROVIDERS: PCP Internal Medicine; Visit Provider Plastic Surgery
PROC: (CPT 25111; principal; 2024-12-29 10:15)
DX: M67.431 Ganglion, right wrist (principal)
CPT/HCPCS: 25111

== ENCOUNTER 2024-12-29 08:54 | Outpatient (NON) | payer MEDICARE, SELFPAY ==
--- NOTE | 2024-12-29 | S_PTH ---
PATIENT: Thelma Anders LOC: [facility] U#:[id number] AGE/SX: 79/F ROOM: RE12/29/[address]: Savanah Simon MD : 1945 BED: DIS: 12/29/2024 SPEC #: [id number] RECD: 12/30/24 09:48 STATUS: IRVIN REAlejandro #: [id number] AMINA: 12/29/24 00:[address]: Savanah Simon DEPT: [facility] Surgical RECD BY: Desiree Liu ENTERED: 12/30/24 09:49 SP TYPE: Surgical OTHR DR: Britton Sheridan MD Tissues: A - Cyst Procedures: Hematoxylin and Eosin Stain Gross and Microscopic Level 4
--- OUTSIDE RECORDS SUMMARY | 2024-12-30 09:00 | XMS_ITS | Clinical Summary ---
Author Organization [facility] Address [facility] [place] [address] Care Team Providers Care Core Maker Name Role Phone Britton Sheridan MD Primary Care Provider [phone] Social History Tobacco Use Types Packs/Day Years [...] age to complete this topic Insurance MEDICARE [facility] Care Teams Core Maker Relationship Specialty Start Date End Date Britton Sheridan MD [address] [place] [address] PCP - General INTERNAL MEDICINE 05/05/23
--- OUTSIDE RECORDS SUMMARY | 2024-12-30 09:01 | XMS_ITS | Clinical Summary ---
Author Organization [facility] al Address [address] [place] [address] Care Team Providers Care Microarray Operations Vice President Name Role Phone Britton Sheridan MD Primary Care Provider [phone] Allergies No known active allergies Medications acetaminophen (TYLENOL) 500 mg tablet Take 1 tablet (500 mg total) by mouth every 6 (six) hours as needed for pain Active glucosam-chondro itin-diet cb25 116-100 mg capsule Take by mouth Active mgdzkdev-lxe-vxu jazmin fumarate 9 mg iron/15 mL liquid [...] on file Legal Sex Female 9:42 AM SHOER Gender Identity Not on file Sexual Orientation [...] or Tdap) 08/25/2032 08/25/2022, 05/28/2018 Insurance MEDICARE [facility] MEDICARE [facility] Care Teams Microarray Operations Vice President Relationship Specialty Start Date End Date Britton Sheridan MD [address] [place] [address] PCP - General Internal Medicine 08/26/22
== END 2024-12-29 08:55 | disposition home or self-care (01) ==
PROVIDERS: PCP Internal Medicine; Visit Provider Plastic Surgery
DX: M67.431 Ganglion, right wrist (principal)
CPT/HCPCS: 88305